=== PATIENT | female | born 1990 | race Hispanic/Latino ===

== ENCOUNTER 2023-04-25 09:58 | Inpatient (IN) | payer MEDICAID, SELFPAY ==
[2023-04-24 10:50] LABS: Hemoglobin 13.8 g/dL (12.0-15.5); Mean Corpuscular HGB CONC 33.2 g/dL (32.0-36.0); Mean Corpuscular Hemoglobin 29.1 pg (27.0-33.0); Mean Corpuscular Volume 87.6 fl (81.6-98.3); Mean Platelet Volume 10.8 fl (7.4-10.4); Platelet Count 246 10x3/uL (150-450); Red Blood Cell (RBC) Count 4.75 10x6/uL (3.90-5.03); White Blood Cell (WBC) Count 8.3 10x3/uL (3.5-10.5)
[2023-04-24 11:22] LABS: Syphilis Antibody Nonreactive (Nonreactive); Syphilis Antibody Index 0.06 S/CO (<1.00 Non-Reactive)
[2023-04-24 11:23] LABS: HBSAg Index 0.18 S/CO (0-0.99); Hep B Surf Ag Non-Reactive S/CO (NonReactive)
[2023-04-25] MEDS ORDERED: Morphine PF 10 MG/10 ML VIAL ONE (10:27)
[2023-04-25] MEDS ORDERED: fentaNYL 50 mcg/mL 1 mL Vial ONE (10:27)
[2023-04-25 10:28] VITALS: BMI 38.4
[2023-04-25] MEDS ORDERED: Oxytocin 10 UNITS/ML VIAL ONE ×2 (10:28→12:24)
[2023-04-25] MEDS ORDERED: Tranexamic Acid 1,000 MG/10 ML VIAL IVP PRN ×2 (10:46→10:47)
[2023-04-25] MEDS ORDERED: Ondansetron PF 4 MG/2 ML Vial IVP PRN ×3 (10:46→11:00)
[2023-04-25] MEDS ORDERED: Promethazine HCl 25 MG/ML VIAL IM PRN ×3 (10:46→11:00)
[2023-04-25] MEDS ORDERED: Famotidine/PF 20 mg/2ml Vial SLOW IVP PRN ×2 (10:46)
[2023-04-25] MEDS ORDERED: Bicitra 30 ML UDCUP PO PRN ×2 (10:46)
[2023-04-25] MEDS ORDERED: hydrALAZINE 20 MG/ML VIAL SLOW IVP PRN ×3 (10:46→13:08)
[2023-04-25] MEDS ORDERED: Carboprost 250 MCG/ML AMP IM PRN (10:47)
[2023-04-25] MEDS ORDERED: Misoprostol 200 MCG TAB PR PRN (10:47)
[2023-04-25] MEDS ORDERED: Diphenoxylate HCl/Atropine Tablet PO PRN (10:47)
[2023-04-25] MEDS ORDERED: CEFAZOLIN 2 GM VIAL ONE (10:54)
[2023-04-25] MEDS ORDERED: Famotidine/PF 20 mg/2ml Vial ONE (10:54)
[2023-04-25] MEDS ORDERED: NS w/ Oxytocin 30 units 500 ML IV SCH ×2 (11:00)
[2023-04-25] MEDS ORDERED: Naloxone HCl 0.4 mg/ml Vial IVP PRN ×2 (11:00)
[2023-04-25] MEDS ORDERED: Ondansetron HCl/PF 4 MG/2 ML Vial IVP PRN (11:00)
[2023-04-25] MEDS ORDERED: Meperidine HCl/PF 25 MG/ML VIAL SLOW IVP PRN (11:00)
[2023-04-25] MEDS ORDERED: Communication Order-Pharmacy FS SCH (11:00)
[2023-04-25] MEDS ORDERED: HYDROmorphone 2 MG/ML VIAL SLOW IVP PRN (11:00)
[2023-04-25] MEDS ORDERED: Lactated Ringer's 1,000 ML IV SCH ×2 (11:00)
[2023-04-25] MEDS ORDERED: Naloxone HCl 0.4 mg/ml Vial IV PRN (11:00)
[2023-04-25] MEDS ORDERED: Ketorolac Tromethamine 30 MG/ML VIAL IVP SCH (11:00)
[2023-04-25] MEDS ORDERED: Moisturizing Cream (Eucerin) 113 GM JAR TOP PRN (11:00)
[2023-04-25] MEDS ORDERED: CEFAZOLIN 2 GM in Sodium Chloride 0.9% 100 ML IVPB SCH (11:00)
[2023-04-25] MEDS ORDERED: Promethazine HCl 25 MG SUPP PR PRN (11:00)
[2023-04-25] MEDS ORDERED: diphenhydrAMINE 50 MG/ML VIAL IVP PRN (11:00)
[2023-04-25] MEDS ORDERED: Fentanyl 100 MCG/2 ML VIAL SLOW IVP PRN (11:00)
[2023-04-25] MEDS ORDERED: ePHEDrine Sulfate 50 MG/10 ML VIAL ONE (11:59)
[2023-04-25] MEDS ORDERED: Boostrix 0.5 ML (Tdap) VIAL (>/=7 yrs of age) IM ONE (13:08)
[2023-04-25] MEDS ORDERED: Bisacodyl 10 MG SUPP PR PRN (13:08)
[2023-04-25] MEDS ORDERED: Simethicone Chewable 80 MG TAB PO PRN (13:08)
[2023-04-25] MEDS ORDERED: Lanolin Ointment 7 GM TUBE TOP PRN (13:08)
[2023-04-25] MEDS ORDERED: Acetaminophen 325 MG TAB PO SCH (13:15)
[2023-04-25] MEDS ORDERED: Acetaminophen 325 MG TAB PO PRN (14:35)
[2023-04-25] MEDS: Ferrous Sulfate 325 MG TAB PO SCH (14:51)
[2023-04-25] MEDS: Ketorolac Tromethamine 30 MG/ML VIAL IVP PRN (20:51)
[2023-04-26 03:13] LABS: Hemoglobin 11.1 g/dL (12.0-15.5); Mean Corpuscular HGB CONC 33.4 g/dL (32.0-36.0); Mean Corpuscular Hemoglobin 29.1 pg (27.0-33.0); Mean Corpuscular Volume 86.9 fl (81.6-98.3); Platelet Count 220 10x3/uL (150-450); RBC Distribution Width 14.9 % (11.5-14.5); Red Blood Cell (RBC) Count 3.82 10x6/uL (3.90-5.03); White Blood Cell (WBC) Count 9.8 10x3/uL (3.5-10.5)
[2023-04-26 03:27] LABS: INR-International Normal Ratio 0.9; Prothrombin Time 10.1 sec (9.5-12.1)
[2023-04-26 04:00] LABS: D-Dimer Test 5.37 mg/L FEU (0.19-0.50)
[2023-04-26] MEDS: Docusate 100 MG CAP PO PRN (09:33)
[2023-04-26] MEDS: Acetaminophen 325 MG TAB PO SCH ×4 (09:33→21:30)
[2023-04-26] MEDS: Prenatal Vitamin 1 TAB PO SCH (09:35)
[2023-04-26] MEDS: Ketorolac Tromethamine 30 MG/ML VIAL IVP PRN (09:35)
[2023-04-26] MEDS: Ibuprofen 800 MG TAB PO SCH (17:25)
[2023-04-27] MEDS: Acetaminophen 325 MG TAB PO SCH ×3 (00:52→08:19)
[2023-04-27] MEDS: Ibuprofen 800 MG TAB PO SCH ×2 (01:00→08:56)
[2023-04-27] MEDS: Ferrous Sulfate 325 MG TAB PO SCH (08:01)
[2023-04-27 08:16] LABS: Hemoglobin 10.7 g/dL (12.0-15.5)
[2023-04-27] MEDS: Prenatal Vitamin 1 TAB PO SCH (08:19)
[2023-04-27] MEDS: Docusate 100 MG CAP PO PRN (08:19)
[2023-04-27 08:57] VITALS: BP 130/80; TEMP 97.9
== END 2023-04-27 10:30 | disposition home or self-care (01) | DRG 786 ==
LOC: CSHLD 09:58 → CSHPP 16:33
PROVIDERS: ADMIT Family Medicine; ATTEND Family Medicine
PROC: 10D00Z1 Extraction of Products of Conception, Low, Open Approach (ICD-10-PCS; principal; 2023-04-25)
DX: O34.211 Maternal care for low transverse scar from previous cesarean delivery (principal); O24.12 Pre-existing type 2 diabetes mellitus, in childbirth; O10.92 Unspecified pre-existing hypertension complicating childbirth; O72.1 Other immediate postpartum hemorrhage; Z3A.39 39 weeks gestation of pregnancy; Z37.0 Single live birth; E11.9 Type 2 diabetes mellitus without complications; E66.9 Obesity, unspecified; O99.214 Obesity complicating childbirth; O99.824 Streptococcus B carrier state complicating childbirth; Z79.84 Long term (current) use of oral hypoglycemic drugs; Z79.82 Long term (current) use of aspirin; O69.81X0 Labor and delivery complicated by cord around neck, without compression, not applicable or unspecified
CPT/HCPCS: 36415; 36416; 51702; 85014; 85018; 85027; 85049; 85300; 85362; 85379; 85384; 85610; 85730; 86780; 86850; 86900; 86901; 87340; J1885; J2274; J2590; J3010; J3490; S0028